=== PATIENT | female | born 1980 | race Caucasian/White ===

== ENCOUNTER → 2017-03-15 | Outpatient (CLI) | payer BC ==
[~2017-03-15] MED LIST: BACTRIM DS 8001 TAB PO; SPRINTEC 35 MCG1 TAB PO
== END ==
LOC: MC.RAD 03-11 13:40
DX: Z12.31 Encounter for screening mammogram for malignant neoplasm of breast (principal)

== ENCOUNTER → 2020-02-02 | Outpatient (CLI) | payer BC ==
[2020-02-06 03:34] LABS: BETA-2 GPI IGG AABS <20.0 CU (<=20.0); BETA-2 GPI IGM AABS <20.0 CU (<=20.0)
[2020-02-06 11:14] LABS: ANTI-THROMBIN III 104 % (72-128)
[2020-02-06 12:21] LABS: LUPUS ANTICOAGULANT PT 13.1 Seconds (())
== END ==
LOC: COL.LAB 11:17
PROVIDERS: Internal Medicine
DX: I82.432 Acute embolism and thrombosis of left popliteal vein (principal)

== ENCOUNTER → 2020-02-13 | Outpatient (CLI) | payer BC | LOC: MC.RAD 10:38 | DX: Z12.31 Encounter for screening mammogram for malignant neoplasm of breast (principal) ==

== ENCOUNTER → 2020-05-17 | Outpatient (CLI) | payer BC | LOC: COL.VAS 14:14 | DX: I82.432 Acute embolism and thrombosis of left popliteal vein (principal) ==